=== PATIENT | male | born 1990 | race Hispanic/Latino ===

== ENCOUNTER 2018-05-04 15:08 | Emergency (ER) | payer SELFPAY ==
[2018-05-04] MEDS ORDERED: IBUPROFEN 200 MG TAB PO ONE (17:05)
[2018-05-04] MEDS ORDERED: ACETAMINOPHEN 500 MG TAB ONE (17:06)
--- NOTE | 2018-05-04 18:07 | EDPHYS ---
Physician Documentation [facility] Name: Florin Jordan Age: 27 yrs Sex: Male : 1990 Arrival Date: 05/04/2018 Time: 15:11 Bed 23 Private MD: Out, [facility] ED Physician Hayden Lee HPI: 05/04 17:31 This 27 yrs old Male presents to ER via Ambulatory with complaints of Leg Pain.wa 17:31 The patient presents with an injury, pain, that is acute, swelling, tenderness. The wa complaints affect the knee, leg, foot. Context: The problem was sustained at home, resulted from jumped off the bed of a truck and landed on feet. c/o ankle and foot pain, swelling in front of R gillespie, swelling and pain below frontal knee, the patient can fully bear weight, the patient is able to ambulate, without difficulty, Problem is a result from a previous injury: No. Onset: The symptoms/episode began/occurred 1 week(s) ago. Modifying factors: The symptoms are alleviated by nothing. the symptoms are aggravated by weight bearing, bending knee. Associated signs and symptoms: The patient has no apparent associated signs or symptoms. Treatment prior to arrival includes: no previous treatment. Severity of symptoms: At their worst the symptoms were moderate, in the emergency department the symptoms are unchanged. The patient has not experienced similar symptoms in the past. The patient has not recently seen a physician. Historical: - Allergies: 15:15 No Known Allergies; sv - Home Meds: 15:15 None [Active]; sv - PMHx: 15:15 None; sv - PSHx: 15:15 None; sv - Immunization history:: Adult Immunizations up to date. - Social history:: Smoking status: Patient/guardian denies using tobacco. - Ebola Screening: : No symptoms or risks identified at this time. - Family history:: not pertinent. - Hospitalizations: : No recent hospitalization is reported. ROS: 17:34 Constitutional: Negative for fever, chills, and weight loss, Eyes: Negative for injury, wa pain, redness, and discharge, ENT: Negative for injury, pain, and discharge, Neck: Negative for injury, pain, and swelling, Cardiovascular: Negative for chest pain, palpitations, and edema, Respiratory: Negative for shortness of breath, cough, wheezing, and pleuritic chest pain, Abdomen/GI: Negative for abdominal pain, nausea, vomiting, diarrhea, and constipation, Back: Negative for injury and pain, : Negative for injury, bleeding, discharge, and swelling, Skin: Negative for injury, rash, and discoloration, Neuro: Negative for headache, weakness, numbness, tingling, and seizure, Psych: Negative for depression, anxiety, suicide ideation, homicidal ideation, and hallucinations. 17:34 MS/extremity: Positive for ecchymosis, pain, swelling, tenderness, of the right leg, Negative for deformity, laceration. Exam: 17:35 Constitutional: This is a well developed, well nourished patient who is awake, alert, wa and in no acute distress. Head/Face: Normocephalic, atraumatic. Eyes: Pupils equal round and reactive to light, extra-ocular motions intact. Lids and lashes normal. Conjunctiva and sclera are non-icteric and not injected. Cornea within normal limits. Periorbital areas with no swelling, redness, or edema. ENT: Nares patent. No nasal discharge, no septal abnormalities noted. Tympanic membranes are normal and external auditory canals are clear. Oropharynx with no redness, swelling, or masses, exudates, or evidence of obstruction, uvula midline. Mucous membranes moist. Neck: Trachea midline, no thyromegaly or masses palpated, and no cervical lymphadenopathy. Supple, full range of motion without nuchal rigidity, or vertebral point tenderness. No Meningismus. Cardiovascular: Regular rate and rhythm with a normal S1 and S2. No gallops, murmurs, or rubs. Normal PMI, no JVD. No pulse deficits. Respiratory: Lungs have equal breath sounds bilaterally, clear to auscultation and percussion. No rales, rhonchi or wheezes noted. No increased work of breathing, no retractions or nasal flaring. Abdomen/GI: Soft, non-tender, with normal bowel sounds. No distension or tympany. No guarding or rebound. No evidence of tenderness throughout. Back: No spinal tenderness. No costovertebral tenderness. Full range of motion. Skin: Warm, dry with normal turgor. Normal color with no rashes, no lesions, and no evidence of cellulitis. Neuro: Awake and alert, GCS 15, oriented to person, place, time, and situation. Cranial nerves II-XII grossly intact. Motor strength 5/5 in all extremities. Sensory grossly intact. Cerebellar exam normal. Normal gait. Psych: Awake, alert, with orientation to person, place and time. Behavior, mood, and affect are within normal limits. 17:35 Musculoskeletal/extremity: Extremities: grossly normal except: noted in the R frontal mid tibia: pain, swelling, tenderness, noted in the R medial foot: ecchymosis, noted in the proximal frontal tibia: ecchymosis, swelling, tenderness, ROM: no acute changes, Circulation is intact in all extremities. Weight bearing: able to fully bear weight, Tendon exam: specific tendon testing normal through active and passive range of motion Calves: are non-tender. Vital Signs: 15:15 BP 117 / 81; Pulse 88; Resp 18; Temp 98; Pulse Ox 97% ; Weight 122.47 kg; Height 6 ft. sv 2 in. (187.96 cm); Pain 3/10; 17:00 BP 121 / 76; Pulse 88; Resp 16; Pulse Ox 100% on R/A; hb 17:29 BP 121 / 78; Pulse 61; Pulse Ox 99% on R/A; rv 15:15 Body Mass Index 34.67 (122.47 kg, 187.96 cm) sv MDM: 16:38 Patient medically screened. ga 17:38 Differential diagnosis: fall. axial load injury. check x-rays r/o injury. ga 18:03 Data reviewed: vital signs, nurses notes, radiologic studies. Test interpretation: by ga ED physician or midlevel provider: R foot, knee, tib-fib X-ray: no acute fracture. Response to treatment: the patient's symptoms have markedly improved after treatment. 05/04 16:54 Order name: Foot Right 3 View XRAY ga 05/04 16:54 Order name: Tib Fib Right XRAY ga 05/04 18:05 Order name: Crutch Training; Complete Time: 18:21 ga 05/04 18:05 Order name: Crutches; Complete Time: 18:21 ga Administered Medications: 17:02 Drug: Tylenol 1000 mg Route: PO; hb 17:28 Follow up: Response: No adverse reaction rv 17:03 Drug: Motrin 600 mg Route: PO; hb 17:28 Follow up: Response: No adverse reaction rv Disposition: 05/04/18 18:06 Discharged to Home. Impression: Proximal frontal anterior R knee contusion. - Condition is Stable. - Discharge Instructions: Contusion, [id number]. - Prescriptions for Ibuprofen 600 mg Oral Tablet - take 1 tablet by ORAL route every 6 hours As needed take with food; 30 tablet. - Medication Reconciliation Form, Thank You Letter, Antibiotic Education, Prescription Opioid Use form. - Follow up: Gerald Augustin MD; When: 5 - 6 days; Reason: Re-evaluation by your physician. - Problem is new. - Symptoms have improved. - Notes: use crutches as needed until swelling and pain improves. follow up with the bone doctor within 1 week if your symptoms do not improve Signatures: Dispatcher [employer] [facility] Mary Cates, BUNNY RN Carolina Terrazas RN RN Hayden Lee MD MD wa Vicente, Ronaldo, RN RN rv Corrections: (The following items were deleted from the chart) 17:45 16:54 Knee Right 3 View+RAD.RAD.BRZ ordered. [facility] 18:22 18:06 05/04/2018 18:06 Discharged to Home. Impression: Proximal frontal anterior R knee rv contusion. Condition is Stable. Forms are Medication Reconciliation Form, Thank You Letter, Antibiotic Education, Prescription Opioid Use. Follow up: Gerald Augustin; When: 5 - 6 days; Reason: Re-evaluation by your physician. Problem is new. Symptoms have improved. wa
--- NOTE | 2018-05-04 18:07 | ER ---
Nurse's Notes [facility] Name: Florin Jordan Age: 27 yrs Sex: Male : 1990 Arrival Date: 05/04/2018 Time: 15:11 Bed 23 Private MD: Out, [facility] Diagnosis: Proximal frontal anterior R knee contusion Presentation: 05/04 15:14 Presenting complaint: Patient states: right leg pain since Sunday04/27/18. Pt c/o sv right leg pain and bruising and swelling to posterior knee. Pt reports that on 04/27/18 he jumped out of the back of his truck and landed on his feet and fell backward because his leg gave out. Transition of care: patient was not received from another setting of care. Onset of symptoms was April 27, 2018. Care prior to arrival: None. 15:14 Method Of Arrival: Ambulatory sv 15:14 Acuity: FINN 3 sv 17:28 Risk Assessment: Do you want to hurt yourself or someone else? Patient reports no rv desire to harm self or others. Initial Sepsis Screen: Does the patient meet any 2 criteria? No. Patient's initial sepsis screen is negative. Does the patient have a suspected source of infection? No. Patient's initial sepsis screen is negative. Historical: - Allergies: 15:15 No Known Allergies; sv - Home Meds: 15:15 None [Active]; sv - PMHx: 15:15 None; sv - PSHx: 15:15 None; sv - Immunization history:: Adult Immunizations up to date. - Social history:: Smoking status: Patient/guardian denies using tobacco. - Ebola Screening: : No symptoms or risks identified at this time. - Family history:: not pertinent. - Hospitalizations: : No recent hospitalization is reported. Screenin:04 Abuse screen: Denies threats or abuse. Denies injuries from another. Nutritional hb screening: No deficits noted. Tuberculosis screening: No symptoms or risk factors identified. Fall Risk None identified. Assessment: 17:03 General: Appears in no apparent distress. Behavior is calm, cooperative. Pain: Pain hb currently is 4 out of 10 on a pain scale. Neuro: Level of Consciousness is awake, alert, obeys commands, Oriented to person, place, time, situation. Cardiovascular: Capillary refill < 3 seconds Patient's skin is warm and dry. Respiratory: Airway is patent Trachea midline Respiratory effort is even, unlabored, Respiratory pattern is regular, symmetrical. GI: No signs and/or symptoms were reported involving the gastrointestinal system. : No signs and/or symptoms were reported regarding the genitourinary system. EENT: No signs and/or symptoms were reported regarding the EENT system. Derm: Skin is intact, is healthy with good turgor. Musculoskeletal: mild swelling and bruising noted to right ankle and right inner lower leg Reports pain in right lower leg, right ankle. Vital Signs: 15:15 BP 117 / 81; Pulse 88; Resp 18; Temp 98; Pulse Ox 97% ; Weight 122.47 kg; Height 6 ft. sv 2 in. (187.96 cm); Pain 3/10; 17:00 BP 121 / 76; Pulse 88; Resp 16; Pulse Ox 100% on R/A; hb 17:29 BP 121 / 78; Pulse 61; Pulse Ox 99% on R/A; rv 15:15 Body Mass Index 34.67 (122.47 kg, 187.96 cm) sv ED Course: 15:11 Patient arrived in ED. sb2 15:12 Out, [facility] is Private Physician. sb2 15:14 Arm band placed on right wrist. sv 15:15 Triage completed. sv 15:16 Patient placed in waiting room, Patient notified of wait time. sv 16:38 Hayden Lee MD is Attending Physician. wa 16:55 Patient has correct armband on for positive identification. Bed in low position. Call hb light in reach. Side rails up X 1. 17:30 Carolina Cruz, BUNNY is Primary Nurse. hb 17:46 X-ray completed. Portable x-ray completed in exam room. Patient tolerated procedure la2 well. 17:46 Foot Right 3 View XRAY In Process Unspecified. EDMS 17:47 Tib Fib Right XRAY In Process Unspecified. EDMS 18:05 Gerald Augustin MD is Referral Physician. wa 18:21 No provider procedures requiring assistance completed. Patient did not have IV access rv during this emergency room visit. Administered Medications: 17:02 Drug: Tylenol 1000 mg Route: PO; hb 17:28 Follow up: Response: No adverse reaction rv 17:03 Drug: Motrin 600 mg Route: PO; hb 17:28 Follow up: Response: No adverse reaction rv Outcome: 18:06 Discharge ordered by . wa 18:22 Discharged to home ambulatory. rv 18:22 Condition: good 18:22 Discharge instructions given to patient, Instructed on discharge instructions, follow up and referral plans. medication usage, Prescriptions given X 1. 18:22 Patient left the ED. rv Signatures: Dispatcher [employer] Mary Urban RN RN Carolina Cruz RN RN Hayden Lee MD MD wa Ardoin, Leslie la2 Julia Tellez2 Jeovany Garcia RN RN rv Corrections: (The following items were deleted from the chart) 15:17 15:14 Presenting complaint: Patient states: right leg pain since Sunday04/27/18. Pt sv c/o right leg pain and bruising and swelling to posterior knee. sv 15:17 15:15 Resp 18bpm; Pulse Ox 97%; Temp 98F; 122.47 kg; Height 6 ft. 2 in.; BMI: 34.6; sv Pain 3/10; sv
--- NOTE | 2018-05-04 18:29 | RAD REPORT ---
EXAM DESCRIPTION: RAD - Foot Right 3 View - 05/04/2018 5:49 pm CLINICAL HISTORY: Right foot pain status post injury FINDINGS: No fracture or dislocation is seen
--- NOTE | 2018-05-04 18:29 | RAD REPORT ---
EXAM DESCRIPTION: RAD - Tib Fib Right - 05/04/2018 5:48 pm CLINICAL HISTORY: Right leg pain status post fall FINDINGS: No fracture is seen
== END 2018-05-04 18:22 | disposition home or self-care (01) ==
LOC: ER 15:08
DX: S80.01XA Contusion of right knee, initial encounter (principal); Y93.39 Activity, other involving climbing, rappelling and jumping off; Y92.812 Truck as the place of occurrence of the external cause
CPT/HCPCS: 99283

== ENCOUNTER 2019-01-08 18:55 | Emergency (ER) | payer BC, SELFPAY ==
--- OUTSIDE RECORDS SUMMARY | 2019-01-08 18:57 | XMS REPORT ---
:1990 [facility] [address] [place] [address] Dr. Mccann [address] [place] [id number] Care Team Providers Name Role Phone Unavailable Unavailable Unavailable Problems This patient has no known problems. Allergies, Adverse Reactions, Alerts This patient has no known allergies or adverse reactions. Medications This patient has no known medications.
[2019-01-08] MEDS ORDERED: IBUPROFEN 400 MG TAB ONE (20:45)
--- NOTE | 2019-01-08 20:52 | RAD REPORT ---
EXAM DESCRIPTION: RAD - Lumbar Spine 3 Views - 01/08/2019 8:46 pm CLINICAL HISTORY: Back pain FINDINGS: The alignment of the lumbar spine is satisfactory. No fracture or dislocation is seen. Minimal spondylosis involves the lumbar spine
--- NOTE | 2019-01-08 21:25 | EDPHYS ---
Physician Documentation [facility] Name: Florin Jordan Age: 28 yrs Sex: Male : 1990 Arrival Date: 01/08/2019 Time: 18:57 Bed 15 Private MD: ED Physician Keegan Courtney HPI: 01/08 20:04 This 28 yrs old Male presents to ER via Ambulatory with complaints of Back michael Pain. 20:04 The patient presents with pain that is acute. The symptoms are located in the low back. michael Onset: The symptoms/episode began/occurred this morning. The pain does not radiate. Associated signs and symptoms: The patient has no apparent associated signs or symptoms. Modifying factors: The patient symptoms are alleviated by remaining still, the patient symptoms are aggravated by movement. Severity of symptoms: At their worst the symptoms were mild, in the emergency department the symptoms are unchanged. The patient has not experienced similar symptoms in the past. Historical: - Allergies: 19:02 No Known Allergies; aa5 - Home Meds: 19:02 None [Active]; aa5 - PMHx: 19:02 None; aa5 - PSHx: 19:02 None; aa5 - Immunization history:: Flu vaccine is up to date. - Social history:: Smoking status: Patient/guardian denies using tobacco. - Ebola Screening: : No symptoms or risks identified at this time. - Family history:: not pertinent. ROS: 20:04 Constitutional: Negative for fever, chills, and weight loss, Eyes: Negative for injury, michael pain, redness, and discharge, ENT: Negative for injury, pain, and discharge, Neck: Negative for injury, pain, and swelling, Cardiovascular: Negative for chest pain, palpitations, and edema, Respiratory: Negative for shortness of breath, cough, wheezing, and pleuritic chest pain, Abdomen/GI: Negative for abdominal pain, nausea, vomiting, diarrhea, and constipation, : Negative for injury, bleeding, discharge, and swelling, MS/Extremity: Negative for injury and deformity, Skin: Negative for injury, rash, and discoloration, Neuro: Negative for headache, weakness, numbness, tingling, and seizure, Psych: Negative for depression, anxiety, suicide ideation, homicidal ideation, and hallucinations, Allergy/Immunology: Negative for hives, rash, and allergies, Endocrine: Negative for neck swelling, polydipsia, polyuria, polyphagia, and marked weight changes, Hematologic/Lymphatic: Negative for swollen nodes, abnormal bleeding, and unusual bruising. 20:04 Back: Positive for decreased range of motion, pain at rest, pain with movement, of the lumbar area, left low back and right low back. Exam: 20:04 Constitutional: This is a well developed, well nourished patient who is awake, alert, michael and in no acute distress. Head/Face: Normocephalic, atraumatic. Eyes: Pupils equal round and reactive to light, extra-ocular motions intact. Lids and lashes normal. Conjunctiva and sclera are non-icteric and not injected. Cornea within normal limits. Periorbital areas with no swelling, redness, or edema. ENT: Nares patent. No nasal discharge, no septal abnormalities noted. Tympanic membranes are normal and external auditory canals are clear. Oropharynx with no redness, swelling, or masses, exudates, or evidence of obstruction, uvula midline. Mucous membranes moist. Neck: Trachea midline, no thyromegaly or masses palpated, and no cervical lymphadenopathy. Supple, full range of motion without nuchal rigidity, or vertebral point tenderness. No Meningismus. Chest/axilla: Normal chest wall appearance and motion. Nontender with no deformity. No lesions are appreciated. Cardiovascular: Regular rate and rhythm with a normal S1 and S2. No gallops, murmurs, or rubs. Normal PMI, no JVD. No pulse deficits. Respiratory: Lungs have equal breath sounds bilaterally, clear to auscultation and percussion. No rales, rhonchi or wheezes noted. No increased work of breathing, no retractions or nasal flaring. Abdomen/GI: Soft, non-tender, with normal bowel sounds. No distension or tympany. No guarding or rebound. No evidence of tenderness throughout. Male : Normal genitalia with no discharge or lesions. Skin: Warm, dry with normal turgor. Normal color with no rashes, no lesions, and no evidence of cellulitis. MS/ Extremity: Pulses equal, no cyanosis. Neurovascular intact. Full, normal range of motion. Neuro: Awake and alert, GCS 15, oriented to person, place, time, and situation. Cranial nerves II-XII grossly intact. Motor strength 5/5 in all extremities. Sensory grossly intact. Cerebellar exam normal. Normal gait. Psych: Awake, alert, with orientation to person, place and time. Behavior, mood, and affect are within normal limits. 20:04 Back: pain, that is mild, ROM is painful, normal spinal alignment noted, CVA tenderness, is absent, muscle spasm, is not present. Vital Signs: 19:02 BP 118 / 80; Pulse 65; Resp 16 S; Temp 98.7(TE); Pulse Ox 97% on R/A; Weight 122.47 kg aa5 (R); Height 6 ft. 2 in. (187.96 cm) (R); Pain 7/10; 20:30 BP 118 / 88; Pulse 68; Resp 18; Pulse Ox 98% on R/A; ea 21:39 BP 145 / 74; Pulse 62; Resp 18; Temp 98.4; Pulse Ox 100% on R/A; ea 19:02 Body Mass Index 34.67 (122.47 kg, 187.96 cm) aa MDM: 19:37 Patient medically screened. [facility] 20:07 Data reviewed: vital signs, nurses notes, lab test result(s), radiologic studies, plain [facility] films. 01/08 21:47 Order name: Urine Dipstick--Ancillary (enter results) [facility] 01/08 20:04 Order name: Lumbar Spine (3 Views) XRAY; Complete Time: 21:18 [facility] 01/08 20:04 Order name: Urine Dipstick-Ancillary (obtain specimen); Complete Time: 21:55 [facility] Administered Medications: 20:59 Drug: Motrin 800 mg Route: PO; ea 21:15 Follow up: Response: No adverse reaction; Pain is decreased ea Disposition: 01/08/19 21:24 Discharged to Home. Impression: Low back pain, Spondylolysis, lumbar region. - Condition is Stable. - Discharge Instructions: Back Pain, Adult, Musculoskeletal Pain, Back Injury Prevention, [id number], Back Pain, Adult, [id number]. - Prescriptions for Ibuprofen 600 mg Oral Tablet - take 1 tablet by ORAL route every 6 hours As needed take with food; 30 tablet. Skelaxin 800 mg Oral Tablet - take 1 tablet by ORAL route every 6 hours As needed; 40 tablet. Tylenol- Codeine #3 300-30 mg Oral Tablet - take 2 tablet by ORAL route every 6 hours As needed; 30 tablet. - Medication Reconciliation Form, Thank You Letter, Antibiotic Education, Prescription Opioid Use form. - Follow up: Private Physician; When: 2 - 3 days; Reason: Recheck today's complaints, Continuance of care, Re-evaluation by your physician. - Problem is new. - Symptoms have improved. Signatures: Dispatcher [employer] EDPA Keegan Courtney MD MD cha Calderon, Audri, RN RN aa5 Nabila Silva RN RN ea Corrections: (The following items were deleted from the chart) 21:54 21:24 01/08/2019 21:24 Discharged to Home. Impression: Low back pain; Spondylolysis, ea lumbar region. Condition is Stable. Discharge Instructions: Back Pain, Adult, Musculoskeletal Pain, Back Injury Prevention, [id number], Back Pain, Adult, [id number]. Prescriptions for Ibuprofen 600 mg Oral Tablet - take 1 tablet by ORAL route every 6 hours As needed take with food; 30 tablet, Skelaxin 800 mg Oral Tablet - take 1 tablet by ORAL route every 6 hours As needed; 40 tablet, Tylenol-Codeine #3 300-30 mg Oral Tablet - take 2 tablet by ORAL route every 6 hours As needed; 30 tablet. and Forms are Medication Reconciliation Form, Thank You Letter, Antibiotic Education, Prescription Opioid Use. Follow up: Private Physician; When: 2 - 3 days; Reason: Recheck today's complaints, Continuance of care, Re-evaluation by your physician. Problem is new. Symptoms have improved. michael
--- NOTE | 2019-01-08 21:25 | ER ---
Nurse's Notes [facility] Name: Florin Jordan Age: 28 yrs Sex: Male : 1990 Arrival Date: 01/08/2019 Time: 18:57 Bed 15 Private MD: Diagnosis: Low back pain;Spondylolysis, lumbar region Presentation: 01/08 19:01 Presenting complaint: Patient states: "this morning when I pulled out a gonzales from the aa5 kitchen cabinet I got a sharp pain on my back and it's not going away". pt c/o pain to right lower back, described as "tight". Transition of care: patient was not received from another setting of care. Onset of symptoms was January 08, 2019. Risk Assessment: Do you want to hurt yourself or someone else? Patient reports no desire to harm self or others. Initial Sepsis Screen: Does the patient meet any 2 criteria? No. Patient's initial sepsis screen is negative. Does the patient have a suspected source of infection? No. Patient's initial sepsis screen is negative. Care prior to arrival: None. 19:01 Method Of Arrival: Ambulatory [facility] 19:01 Acuity: FINN 4 aa5 Historical: - Allergies: 19:02 No Known Allergies; aa5 - Home Meds: 19:02 None [Active]; aa5 - PMHx: 19:02 None; aa5 - PSHx: 19:02 None; aa5 - Immunization history:: Flu vaccine is up to date. - Social history:: Smoking status: Patient/guardian denies using tobacco. - Ebola Screening: : No symptoms or risks identified at this time. - Family history:: not pertinent. Screenin:33 Abuse screen: Denies threats or abuse. Nutritional screening: No deficits noted. ea Tuberculosis screening: No symptoms or risk factors identified. Fall Risk None identified. Assessment: 07:18 General: Appears in no apparent distress. Behavior is calm, cooperative, appropriate ea for age. Pain: Complains of pain in low back area, left low back and right low back. Neuro: Level of Consciousness is awake, alert, obeys commands, Oriented to person, place, time, situation. Cardiovascular: Patient's skin is warm and dry. Respiratory: Airway is patent Respiratory effort is even, unlabored, Respiratory pattern is regular, symmetrical. GI: No signs and/or symptoms were reported involving the gastrointestinal system. Derm: Skin is pink, warm \\T\\ dry. 20:58 Reassessment: Patient and/or family updated on plan of care and expected duration. Pain ea level reassessed. Pt returned from radiology. 21:51 Reassessment: Patient and/or family updated on plan of care and expected duration. Pain ea level reassessed. Patient is alert, oriented x 3, equal unlabored respirations, skin warm/dry/pink. Discharge instruction given to patient, verbalized the understanding of instruction. Patient states symptoms have improved. Vital Signs: 19:02 BP 118 / 80; Pulse 65; Resp 16 S; Temp 98.7(TE); Pulse Ox 97% on R/A; Weight 122.47 kg aa5 (R); Height 6 ft. 2 in. (187.96 cm) (R); Pain 7/10; 20:30 BP 118 / 88; Pulse 68; Resp 18; Pulse Ox 98% on R/A; ea 21:39 BP 145 / 74; Pulse 62; Resp 18; Temp 98.4; Pulse Ox 100% on R/A; ea 19:02 Body Mass Index 34.67 (122.47 kg, 187.96 cm) aa5 ED Course: 18:57 Patient arrived in ED. mr 19:01 Arm band placed on. aa5 19:02 Triage completed. aa5 19:03 Reinaldo Hays, RN is Primary Nurse. bp 19:33 Patient has correct armband on for positive identification. Bed in low position. Call ea light in reach. 19:37 Keegan Courtney MD is Attending Physician. michael 20:37 Lumbar Spine (3 Views) XRAY In Process Unspecified. EDMS 21:52 No provider procedures requiring assistance completed. Patient did not have IV access ea during this emergency room visit. Administered Medications: 20:59 Drug: Motrin 800 mg Route: PO; ea 21:15 Follow up: Response: No adverse reaction; Pain is decreased ea Outcome: 21:24 Discharge ordered by . michael 21:52 Discharged to home ambulatory. ea 21:52 Condition: improved 21:52 Discharge instructions given to patient, Instructed on discharge instructions, follow up and referral plans. medication usage, Demonstrated understanding of instructions, follow-up care, medications, Prescriptions given X 3. 21:54 Patient left the ED. ea Signatures: Dispatcher [employer] EDKeegan Freeman MD MD cha Rivera, Pebbles mr FarrellNaye boucher, RN RN Nabila Teixeira RN RN ea Peltier, Brian, RN RN bp Corrections: (The following items were deleted from the chart) 21:54 21:39 BP 145 / 74; Pulse 62bpm; Resp 18bpm; Pulse Ox 100% RA; jame kilgore
[2019-01-08 22:17] LABS: Urine Blood NEGATIVE (NEG); Urine Glucose NEGATIVE (NEG); Urine Protein TRACE (NEG); Urine Specific Gravity >1.030 (1.005-1.030); Urine pH 5.5 (5.0-7.0)
== END 2019-01-08 21:54 | disposition home or self-care (01) ==
LOC: ER 18:55
DX: M47.896 Other spondylosis, lumbar region (principal)
CPT/HCPCS: 72100; 81003; 99283